=== PATIENT | female | born 1990 | race African-American/Black ===

== ENCOUNTER 2020-02-05 00:19 | Emergency (ER) | payer BC, MEDICAID ==
[~2020-02-05] VITALS: Ht 172.7 cm; Wt 130.0 kg
[2020-02-05] MEDS ORDERED: VISCOUS LIDOCAINE 2% 15 ML UDC PO ONE (00:30)
[2020-02-05] MEDS ORDERED: MAGNESIUM/ALUMINUM HYDROXIDE/SIMETHICONE 30ML UDC PO ONE (00:30)
[2020-02-05 01:32] VITALS: BP 129/65
== END 2020-02-05 01:35 | disposition home or self-care (01) ==
LOC: ER 00:19
DX: T17.298A Other foreign object in pharynx causing other injury, initial encounter (principal); X58.XXXA Exposure to other specified factors, initial encounter; Y93.9 Activity, unspecified; Y92.9 Unspecified place or not applicable
CPT/HCPCS: 99283